=== PATIENT | female | born 1990 | race American Indian/Alaskan Native ===

== ENCOUNTER 2021-10-18 13:05 | Emergency (ER) | payer OTHER ==
--- NOTE | 2021-10-18 14:16 | Emergency Department Report ---
- General Chief complaint: Skin/Abscess/Foreign Body Stated complaint: LUMP UNDER ARMPIT/HIGH BP Time Seen by Provider: 10/18/21 14:09 Source: patient Mode of arrival: Ambulatory Limitations: No Limitations - History of Present Illness Initial comments: 31-year-old female presents to the ER today with complaints of a boil to the right axilla. She states that has been getting bigger and worse over the past week. She states that she had similar symptoms but is been several years ago and she actually had to come to the ER to have it I indeed. She denies any recent shaving to her right axilla, or any other irritation to the right axilla. She denies history of diabetes, MRSA, or any other immunocompromising illness. She does have a history of hypertension for which she takes blood pressure medication. She states that last night she noted her blood pressure was high, in the 180s systolic and she was having a headache and so went to have blood pressure checked out as well today. She reports no chest pain, shortness of breath, vision changes, speech changes, focal weakness or any additional symptoms at this time. MD complaint: abscess/boil -: week(s) (1) - Related Data Previous Rx's Medication Instructions Recorded Last Taken Type Acetaminophen/Codeine [Tylenol 1 tab PO Q4HR PRN #12 tablet 10/18/21 Unknown Rx /Codeine # 3 tab] Ibuprofen [Motrin] 600 mg PO Q8H PRN #30 tablet 10/18/21 Unknown Rx Sulfamethoxazole/Trimethoprim 1 each PO BID #14 tablet 10/18/21 Unknown Rx [Bactrim DS TAB] Allergies Allergy/AdvReac Type Severity Reaction Status Date / Time No Known Allergies Allergy Unverified 10/18/21 14:08 Abscess Boil HPI - HPI Chief Complaint: Skin/Abscess/Foreign Body Stated Complaint: LUMP UNDER ARMPIT/HIGH BP Time Seen by Provider: 10/18/21 14:09 Home Medications: Previous Rx's Medication Instructions Recorded Last Taken Type Acetaminophen/Codeine [Tylenol 1 tab PO Q4HR PRN #12 tablet 10/18/21 Unknown Rx /Codeine # 3 tab] Ibuprofen [Motrin] 600 mg PO Q8H PRN #30 tablet 10/18/21 Unknown Rx Sulfamethoxazole/Trimethoprim 1 each PO BID #14 tablet 10/18/21 Unknown Rx [Bactrim DS TAB] Allergies/Adverse Reactions: Allergies Allergy/AdvReac Type Severity Reaction Status Date / Time No Known Allergies Allergy Unverified 10/18/21 14:08 ED Review of Systems ROS: Stated complaint: LUMP UNDER ARMPIT/HIGH BP Other details as noted in HPI Comment: All other systems reviewed and negative Constitutional: denies: chills, fever Eyes: denies: eye pain, eye discharge, vision change ENT: denies: ear pain, throat pain Respiratory: denies: cough, shortness of breath, wheezing Cardiovascular: denies: chest pain, palpitations Gastrointestinal: denies: abdominal pain, nausea, diarrhea, constipation, hematemesis, hematochezia Genitourinary: denies: urgency, dysuria, discharge Skin: other (abscess right axillar). denies: change in color, change in hair/nails, pruritus Neurological: denies: headache, weakness, numbness, paresthesias, confusion, abnormal gait, vertigo Psychiatric: denies: auditory hallucinations, visual hallucinations, homicidal thoughts, suicidal thoughts Hematological/Lymphatic: denies: easy bleeding, easy bruising, swollen glands ED Past Medical Hx - Medications Home Medications: Home Medications Medication Instructions Recorded Confirmed Last Taken Type Acetaminophen/Codeine [Tylenol 1 tab PO Q4HR PRN #12 tablet 10/18/21 Unknown Rx /Codeine # 3 tab] Ibuprofen [Motrin] 600 mg PO Q8H PRN #30 tablet 10/18/21 Unknown Rx Sulfamethoxazole/Trimethoprim 1 each PO BID #14 tablet 10/18/21 Unknown Rx [Bactrim DS TAB] ED Physical Exam - General Limitations: No Limitations General appearance: alert, in no apparent distress - Head Head exam: Present: atraumatic, normocephalic, normal inspection - Eye Eye exam: Present: normal appearance, PERRL, EOMI Pupils: Present: normal accommodation - Respiratory Respiratory exam: Present: normal lung sounds bilaterally. Absent: respiratory distress - Cardiovascular Cardiovascular Exam: Present: regular rate, normal rhythm, normal heart sounds - Neurological Exam Neurological exam: Present: alert, oriented X3, CN II-XII intact, normal gait - Psychiatric Psychiatric exam: Present: normal affect, normal mood - Skin Skin exam: Present: other (Approximately 2 cm x 3 cm indurated, fluctuant area noted to right axilla. No apparent erythema noted. It is very tender to palpate.) ED Course Vital Signs 10/18/21 14:06 Temperature 99.1 F Pulse Rate 79 Respiratory 16 Rate Blood Pressure 131/87 [Left] O2 Sat by Pulse 100 Oximetry - I & D Right Arm Type of Procedure: Complex (Right axillar) Site: Right axillar Blade Size: 11 I & D Procedure: betadine prep, gauze wick placed Progress: Moderate amount of pus drained. Patient tolerated procedure well without complications. Critical care attestation.: If time is entered above; I have spent that time in minutes in the direct care of this critically ill patient, excluding procedure time. ED Disposition Clinical Impression: Abscess of right axilla, History of hypertension Disposition: HOME / SELF CARE / HOMELESS Is pt being admited?: No Does the pt Need Aspirin: No Condition: Stable Instructions: Skin Abscess, [id number], Incision and Drainage, Care After, Hypertension, Adult, [id number] Additional Instructions: Recommend I take the Bactrim as prescribed until completion. Take the Tylenol threes and the ibuprofen to help your pain. Recommend that you leave the dressing in place until you follow-up in 2 days to have the packing removed. If for some reason the dressing becomes old you can change it but try to avoid pulling the packing. Return sooner to the ER if symptoms worsens. Prescriptions: Sulfamethoxazole/Trimethoprim [Bactrim DS TAB] 1 each PO BID #14 tablet Ibuprofen [Motrin] 600 mg PO Q8H PRN #30 tablet PRN Reason: Pain Acetaminophen/Codeine [Tylenol /Codeine # 3 tab] 1 tab PO Q4HR PRN #12 tablet PRN Reason: Pain Referrals: PRIMARY CARE, [Primary Care Provider] - 3-5 Days Forms: Work/School Release Form(ED) Time of Disposition: 14:46
[2021-10-18 15:32] VITALS: BP 145/80
== END 2021-10-18 15:33 | disposition home or self-care (01) ==
LOC: ED 13:05
DX: L02.411 Cutaneous abscess of right axilla (principal)
CPT/HCPCS: 99282

== ENCOUNTER 2021-10-21 15:00 | Emergency (ER) | payer OTHER, MEDICAID ==
--- NOTE | 2021-10-21 16:20 | Emergency Department Report ---
ED General Adult HPI - General Chief complaint: Laceration/Recheck/Suture Stated complaint: REMOVE ARMPIT PACKING Time Seen by Provider: 10/21/21 16:04 Source: patient Mode of arrival: Ambulatory Limitations: No Limitations - History of Present Illness Initial comments: 31 year old female presents to ED today for packing removal. Patient had I&D done about 2 days ago. She states area still painful and has been draining. She states she has been taking the antibiotics as prescribed. She has not had any fever denies any increasing redness. She reports no additional symptoms at this time. MD Complaint: Packing removal -: days(s) (3) - Related Data Previous Rx's Medication Instructions Recorded Last Taken Type Acetaminophen/Codeine [Tylenol 1 tab PO Q4HR PRN #12 tablet 10/18/21 Unknown Rx /Codeine # 3 tab] Ibuprofen [Motrin] 600 mg PO Q8H PRN #30 tablet 10/18/21 Unknown Rx Sulfamethoxazole/Trimethoprim 1 each PO BID #14 tablet 10/18/21 Unknown Rx [Bactrim DS TAB] Allergies Allergy/AdvReac Type Severity Reaction Status Date / Time No Known Allergies Allergy Verified 10/21/21 15:12 ED Review of Systems ROS: Stated complaint: REMOVE ARMPIT PACKING Other details as noted in HPI Comment: All other systems reviewed and negative Constitutional: denies: chills, fever Eyes: denies: eye pain, eye discharge, vision change ENT: denies: ear pain, throat pain Respiratory: denies: cough, shortness of breath, wheezing Cardiovascular: denies: chest pain, palpitations, dyspnea on exertion, edema, syncope, paroxysmal nocturnal dyspnea Endocrine: no symptoms reported Gastrointestinal: denies: abdominal pain, nausea, diarrhea, constipation, hematemesis, melena, hematochezia Genitourinary: denies: urgency, dysuria, frequency, hematuria, discharge, abnormal menses, dyspareunia Musculoskeletal: denies: back pain, joint swelling, arthralgia Skin: denies: change in color Neurological: denies: headache, weakness, paresthesias Psychiatric: denies: anxiety, depression ED Past Medical Hx - Medications Home Medications: Home Medications Medication Instructions Recorded Confirmed Last Taken Type Acetaminophen/Codeine [Tylenol 1 tab PO Q4HR PRN #12 tablet 10/18/21 Unknown Rx /Codeine # 3 tab] Ibuprofen [Motrin] 600 mg PO Q8H PRN #30 tablet 10/18/21 Unknown Rx Sulfamethoxazole/Trimethoprim 1 each PO BID #14 tablet 10/18/21 Unknown Rx [Bactrim DS TAB] ED Physical Exam - General Limitations: No Limitations General appearance: alert, in no apparent distress - Head Head exam: Present: atraumatic, normocephalic, normal inspection - Eye Eye exam: Present: normal appearance, PERRL, EOMI Pupils: Present: normal accommodation - Neck Neck exam: Present: normal inspection, full ROM - Respiratory Respiratory exam: Absent: respiratory distress - Cardiovascular Cardiovascular Exam: Present: regular rate - Neurological Exam Neurological exam: Present: alert, oriented X3, CN II-XII intact, normal gait - Psychiatric Psychiatric exam: Present: normal affect, normal mood - Skin Skin exam: Present: other (Incised abscess noted to the right axilla. Packing still in place and removed by me. Overall wound appears be healing well without any worsening signs of infection.) ED Course Vital Signs 10/21/21 10/21/21 15:11 16:46 Temperature 98.4 F 97.3 F L Pulse Rate 88 78 Respiratory 14 16 Rate Blood Pressure 121/85 117/72 [Left] O2 Sat by Pulse 100 100 Oximetry Critical care attestation.: If time is entered above; I have spent that time in minutes in the direct care of this critically ill patient, excluding procedure time. ED Disposition Clinical Impression: Abscess re-check Disposition: 01 HOME / SELF CARE / HOMELESS Is pt being admited?: No Does the pt Need Aspirin: No Condition: Stable Instructions: Wound Care, Adult Additional Instructions: Keep area clean soap and water, dry well after each cleaning and you can apply a dressing after each cleaning. The area should heal in about 1 week. Continue to take your antibiotics and make sure you complete it. You can take Tylenol and ibuprofen as needed for pain. Follow-up with general surgeon or plastic surgeon as discussed. Return to the ER if symptoms worsens in any way. Referrals: SEJAL KIRKLAND MD [Staff Physician] - 3-5 Days Time of Disposition: 16:24
[2021-10-21 16:51] VITALS: BP 117/72
== END 2021-10-21 16:52 | disposition home or self-care (01) ==
LOC: ED 15:00
DX: Z48.01 Encounter for change or removal of surgical wound dressing (principal)